=== PATIENT | male | born 1985 | race Two or more races ===

== ENCOUNTER 2024-09-18 20:35 | Inpatient (IN) | payer OTHER ==
[~2024-09-18] VITALS: Ht 172.7 cm; Wt 131.0 kg
[2024-09-18 21:58] LABS: PLATELET COUNT (AUTO) 327 K/uL (150-450); RED BLOOD CELL COUNT(AUTO) 5.20 MIL/uL (4.50-5.90); RED CELL DISTRIBUTION WIDTH 13.7 % (11.5-14.5); WHITE BLOOD COUNT (AUTO) 12.0 K/uL (4.5-11.0)
[2024-09-18 22:06] LABS: CALCIUM, TOTAL 9.3 mg/dL (8.8-10.5); CREATININE 0.92 mg/dL (0.60-1.30); GLOMERULAR FILTR. RATE CALC > 60 mL/min (>60); GLUCOSE,RANDOM 101 mg/dL (70-110); SODIUM SERUM 140 mmol/L (136-145); UREA NITROGEN, BLOOD 11 mg/dL (7-18)
[2024-09-18 22:15] LABS: TROPONIN I-HIGH SENSITIVITY 6 ng/L (<76)
[2024-09-18 22:35] LABS: GLUCOMETER DEV NAME(LOC) ERT.7; GLUCOSE,POINT OF CARE 113 MG/DL (70-110)
[2024-09-18] MEDS ORDERED: MAGNESIUM HYDROXIDE SUSPENSION 30 ML UDCUP PO PRN (23:45)
[2024-09-18] MEDS ORDERED: ZOLPIDEM TARTRATE 10 MG TABLET PO PRN (23:45)
[2024-09-18] MEDS ORDERED: ONDANSETRON HCL 4 MG/2 ML VIAL IVP PRN (23:45)
[2024-09-18] MEDS ORDERED: IPRATROPIUM BROMIDE 0.5 MG/2.5 ML NEB SOLUTION NEB PRN (23:45)
[2024-09-19] VITALS (8 sets, daily range): BP systolic 103–137; BP diastolic 57–82; PULSE 71–78; RESP 17–20; TEMP 97.9–98.4; O2SAT 95–99
[2024-09-19 00:22] LABS: TROPONIN I-HIGH SENSITIVITY 4 ng/L (<76)
[2024-09-19] MEDS: NITROGLYCERIN 2% (1 GM=INCH) OINTMENT PACKET TP SCH (00:25)
[2024-09-19] MEDS: ACETAMINOPHEN 325 MG TABLET PO PRN (02:37)
[2024-09-19 06:42] LABS: PLATELET COUNT (AUTO) 300 K/uL (150-450); RED BLOOD CELL COUNT(AUTO) 4.89 MIL/uL (4.50-5.90); RED CELL DISTRIBUTION WIDTH 13.9 % (11.5-14.5); WHITE BLOOD COUNT (AUTO) 7.6 K/uL (4.5-11.0)
[2024-09-19 07:03] LABS: ASPARTATE AMINOTRANSFERASE 19 U/L (15-37); CALCIUM, TOTAL 9.0 mg/dL (8.8-10.5); CHOL/HDL RATIO 5.4 (4.2-7.3); CREATININE 0.93 mg/dL (0.60-1.30); GLOMERULAR FILTR. RATE CALC > 60 mL/min (>60); GLUCOSE,RANDOM 103 mg/dL (70-110); LDL CHOL (CALC.) 131 mg/dL (0-130); SODIUM SERUM 139 mmol/L (136-145); TOTAL PROTEIN, SERUM 6.9 g/dL (6.4-8.2); UREA NITROGEN, BLOOD 13 mg/dL (7-18)
[2024-09-19 07:20] LABS: TROPONIN I-HIGH SENSITIVITY Less Than 4 ng/L (<76)
[2024-09-19] MEDS: ASPIRIN 81 MG CHEWABLE TABLET PO SCH (09:02)
[2024-09-19] MEDS: PANTOPRAZOLE SODIUM 40 MG/VIAL IVP SCH (09:02)
[2024-09-19] MEDS: DOCUSATE SODIUM 100 MG CAPSULE PO SCH (09:02)
[2024-09-19 13:12] LABS: APPEARANCE,URINE CLEAR (CLEAR); GLUCOSE, URINE (UA) NEGATIVE (NEGATIVE); LEUKOCYTE ESTERASE ,URINE NEGATIVE (NEGATIVE); NITRATE,URINE NEGATIVE (NEGATIVE); OCCULT BLOOD,URINE TRACE (NEGATIVE); PH,URINE DRUG SCREEN 5.5 (5.0-8.0); SPECIFIC GRAVITIY, URINE 1.019 (1.003-1.030)
[2024-09-19 13:18] LABS: ALCOHOL, URINE DRUG SCREEN NEGATIVE (NEGATIVE); AMPHET/METH SCREEN,URINE NEGATIVE (NEGATIVE); BARBITURATE SCREEN, URINE NEGATIVE (NEGATIVE); CANNABINOID SCREEN,URINE NEGATIVE (NEGATIVE); COCAINE SCREEN,URINE NEGATIVE (NEGATIVE); METHADONE SCREEN, URINE NEGATIVE (NEGATIVE)
[2024-09-19 14:13] LABS: TROPONIN I-HIGH SENSITIVITY 4 ng/L (<76)
[2024-09-20 03:12] VITALS: BP 128/81; PULSE 69; RESP 20; TEMP 98.1; O2SAT 95
[2024-09-20 08:58] VITALS: BP 148/63; PULSE 82; RESP 18; TEMP 98.2; O2SAT 93
[2024-09-20 11:26] VITALS: BP 136/74; PULSE 75; RESP 19; TEMP 98.1; O2SAT 94
== END 2024-09-20 15:05 | DRG 313 ==
LOC: EMS 20:35 → EDH 23:31 → UNDOADMIN 09-19 00:31 → EDH 09-19 00:31 → 5S 09-19 02:15 → EDH 09-19 02:15
PROVIDERS: ADMIT Hospitalist; ATTEND Hospitalist
DX: R07.89 Other chest pain (principal); I10 Essential (primary) hypertension; F17.210 Nicotine dependence, cigarettes, uncomplicated
CPT/HCPCS: 71045; 80048; 80053; 80061; 80307; 81001; 82962; 83880; 84484; 85025; 93005; 93306; 99285; G0378; J2470; 36415-L1; 36415-TC